=== PATIENT | female | born 1980 | race Native Hawaiian/Other Pacific Islander ===

== ENCOUNTER 2021-05-07 14:11 | Inpatient (IN) | payer OTHER ==
[~2021-05-07] VITALS: Ht 160 cm; Wt 141.7 kg
[2021-05-07 16:30] LABS: PLATELET COUNT 380 K/uL (152-353)
[2021-05-07 19:56] VITALS: BP 155/103; TEMP 98; Ht 160 cm; Wt 141.7 kg
[2021-05-07 20:00] VITALS: BP 128/91; TEMP 97.9
[2021-05-08] VITALS: BP 127/80; TEMP 97.9
[2021-05-08 04:00] VITALS: BP 138/88; TEMP 97.6
[2021-05-08 08:00] VITALS: BP 133/84; TEMP 97.5
[2021-05-08 12:00] VITALS: BP 122/90; TEMP 98.2
--- NOTE | 2021-05-08 16:08 | NUR ---
PT UP IN BED ALERT AND AWAKE, DENIES ANY PAIN OR DISCOMFORT. NAD NOTED. AM MEDS ADMINISTERED ORDERED AND PT TOLERATED WELL. VITAL SIGNS STABLE. PT STATED "WHEN I'M I GOING HOME." EXPLAINED TO PT THAT ONCE DR SMITH EVALUATES HER AND HER LABS/X-RAY SHE WILL DECIDE IF PT WILL BE DETERMINED.
--- NOTE | 2021-05-08 17:17 | NUR ---
PT DISCHARGED TO GO HOME PER DR SMITH AT 1500. F/U APPOINTMENT SCHEDULED WITH DR SMITH ON AT 11:30. PRESCRIPTIONS GIVEN TO PT AND MEDICATION COMPLIANCE ENCOURAGED. IV SITE TO RIGHT FA DISCONTINUED WITH NO REDNESS OR SWELLING NOTED. TELEMETRY DISCONTINUED. DISCHARGE INSTRUCTION GIVEN TO PT AND ADDRESSED ANY QUESTIONS/CONCERNS FOR PT. PT VERBALIZED UNDERSTANDING. PT TRANSPORTED OUT VIA WHEELCHAIR AND AWAITING TO TAKE PT HOME.
== END 2021-05-08 16:00 | disposition home or self-care (01) | DRG 177 ==
LOC: MED/SURG 14:11
PROVIDERS: ADMIT Family Medicine; ATTEND Family Medicine
DX: U07.1 COVID-19 (principal); J12.82 Pneumonia due to coronavirus disease 2019
CPT/HCPCS: 80053; 82728; 85027; 85379; 86140; 87040; 87070; 87205; 87635; 93005; 94667; 94668; 94760; J0456; J1885; U0003